=== PATIENT | male | born 1990 | race Caucasian/White ===

== ENCOUNTER 2022-06-15 11:15 | Emergency (ER) | payer OTHER, SELFPAY ==
[2022-06-15 11:32] VITALS: BP 168/79; PULSE 87; RESP 15; TEMP 36.8; O2SAT 99; BMI 26.6
--- NOTE | 2022-06-15 11:35 | DI.RAD.S_ITS ---
PROCEDURE: XR HIP W PEL IF DONE LT 2V INDICATIONS: lower back and left hip pain TECHNIQUE: Two views of each hip well as AP view of the pelvis was obtained COMPARISON: None. FINDINGS: Bones: No fractures or dislocations. No suspicious bony lesions. The visualized pelvic ring appears intact. Soft tissues: No suspicious soft tissue calcifications or masses. IMPRESSION: Unremarkable bilateral hip radiographs Approved by: Bhaskar Torres M.D. on 06/15/2022 at 11:36
--- NOTE | 2022-06-15 13:04 | DI.RAD.S_ITS ---
PROCEDURE: XR LUMBAR SPINE 2-3V INDICATIONS: lumbar radiulopathy, eval L2-L4 TECHNIQUE: 3 views of the lumbar spine were acquired. COMPARISON: None. FINDINGS: Bones: There is curvature of the lumbar spine, according to technologist note the patient is leaning to the left and was unable to straighten due to pain. 5 [id number] vertebrae are present. There is normal bony alignment. No vertebral body compression fractures. No suspicious bony lesions. Soft tissues: Overlying bowel gas pattern is normal. No suspicious soft tissue calcifications. IMPRESSION: Curvature of the spine to the left due to patient positioning. No acute abnormality identified. Dictated by: Miguel Jeter M.D. on 06/15/2022 at 14:15 Approved by: Miguel Jeter M.D. on 06/15/2022 at 14:18
--- NOTE | 2022-06-15 13:06 | ED.LOWEXIN ---
HPI - Extremity Injury (Lower) <SHASHA Garner - Last Filed: 06/15/22 16:05> General Chief Complaint: Extremity Injury, Lower Stated Complaint: Back injury 6 wks ago getting worse- new leg pain Time Seen by Provider: 06/15/22 13:04 Source: patient Mode of arrival: Ambulatory History of Present Illness HPI Narrative: This is a 32-year-old male presents to the emergency department complaining of anterior thigh pain which has been getting worse since he injured his low back 6 weeks ago lifting a heavy weight from a full squat position he complains of lumbar pain which has been radiating to his anterior left thigh. Denies any radiation of his lower leg, states that his hip feels slightly weak and this pain has been getting worse over the last few days. He has been taking Flexeril, Tylenol, ibuprofen and lidocaine patches and state that he is not getting better yet. He states that the Flexeril makes him so tired that take that medication during the day. Related Data Previous Rx's Medication Instructions Recorded ketorolac 10 mg tablet 10 mg PO TID PRN pain 5 days #20 06/15/22 tabs methocarbamol 500 mg tablet 250 - 500 mg PO Q8H PRN muscle 06/15/22 spasm #20 tabs prednisone 20 mg tablet 40 mg PO DAILY #10 tabs 06/15/22 Allergies Allergy/AdvReac Type Severity Reaction Status Date / Time Sulfa (Sulfonamide Allergy Severe ITCHING Verified 06/15/22 14:09 Antibiotics) [SULFA (SULFONAMIDE ANTIBIOTICS)] Review of Systems <SHASHA Garner - Last Filed: 06/15/22 16:05> Review of Systems Narrative: Review of systems is negative for acute abnormalities unless otherwise noted in HPI Patient History <SHASHA Garner - Last Filed: 06/15/22 16:05> Social History Smoking Status: Unknown if ever smoked Smoking Status: Unknown if ever smoked alcohol intake frequency: 0-2 drinks per day Substance Use Type: does not use Exam <SHASHA Garner - Last Filed: 06/15/22 16:05> Narrative Exam Narrative: Reviewed vitals signs and nursing notes. General: cooperative, comfortable, in no acute distress, well groomed, ambulatory with steady gait HEENT: symmetrical facial expressions, moist mucous membranes Cardiovascular: regular rate and rhythm, no peripheral edema, warm extremities Respiratory: normal effort, able to speak in complete sentences, without wheezing, stridor, or abnormal breath sounds. No retractions or tachypnea. GI: abdomen soft, nontender to palpation, nondistended, without masses, rebound tenderness or exquisite tenderness with exam. MSK: moves all extremities, neurovascularly intact, no weakness, normal tone, no point tenderness along lumbar spine, Skin: brisk capillary refill, without pallor or erythema Neuro: normal speech and cognition, A&O x3, ambulatory, clear speech Psych: mental status is grossly normal, congruent mood, normal affect, pleasant and cooperative Initial Vital Signs Initial Vital Signs: Vital Signs Temperature 98.3 F 06/15/22 11:32 Pulse Rate 87 06/15/22 11:32 Respiratory Rate 15 06/15/22 11:32 Blood Pressure 168/79 H 06/15/22 11:32 Pulse Oximetry 99 06/15/22 11:32 Oxygen Delivery Method 06/15/22 11:32 <Jarad Stewart MD - Last Filed: 06/15/22 16:57> Initial Vital Signs Initial Vital Signs: Vital Signs Temperature 98.3 F 06/15/22 11:32 Pulse Rate 87 06/15/22 11:32 Respiratory Rate 15 06/15/22 11:32 Blood Pressure 168/79 H 06/15/22 11:32 Pulse Oximetry 99 06/15/22 11:32 Oxygen Delivery Method 06/15/22 11:32 Course <SHASHA Garner - Last Filed: 06/15/22 16:05> Orders Ordered: ED Orders 06/15/22 11:35 XR hip w pel if done LT 2V Stat 06/15/22 13:04 XR lumbar spine 2-3V Stat Discontinued Medications Acetaminophen (Acetaminophen 325 Mg Tablet) 975 mg PO NOW ONE Stop: 06/15/22 13:05 Last Admin: 06/15/22 13:17 Dose: 975 mg Documented By: BT Ketorolac Tromethamine (Ketorolac 30 Mg/Ml Vial) 15 mg IM NOW ONE Stop: 06/15/22 13:05 Last Admin: 06/15/22 13:17 Dose: 15 mg Documented By: BT Methocarbamol (Methocarbamol 500 Mg Tablet) 500 mg PO NOW ONE Stop: 06/15/22 13:06 Last Admin: 06/15/22 13:17 Dose: 500 mg Documented By: BT Pantoprazole Sodium (Pantoprazole Dr 20 Mg Tablet) 20 mg PO NOW ONE Stop: 06/15/22 13:05 Last Admin: 06/15/22 13:17 Dose: 20 mg Documented By: BT Prednisone (Prednisone 20 Mg Tablet) 60 mg PO NOW ONE Stop: 06/15/22 13:05 Last Admin: 06/15/22 13:16 Dose: 60 mg Documented By: BT Vital Signs Vital signs: Vital Signs - 8 hr 06/15/22 11:32 06/15/22 14:10 Temperature 98.3 F Pulse Rate 87 69 Respiratory Rate 15 20 Blood Pressure 168/79 H 117/74 Pulse Oximetry 99 98 Oxygen Delivery Method Room Air Room Air <Jarad Stewart MD - Last Filed: 06/15/22 16:57> Orders Ordered: ED Orders 06/15/22 11:35 XR hip w pel if done LT 2V Stat 06/15/22 13:04 XR lumbar spine 2-3V Stat Discontinued Medications Acetaminophen (Acetaminophen 325 Mg Tablet) 975 mg PO NOW ONE Stop: 06/15/22 13:05 Last Admin: 06/15/22 13:17 Dose: 975 mg Documented By: BT Ketorolac Tromethamine (Ketorolac 30 Mg/Ml Vial) 15 mg IM NOW ONE Stop: 06/15/22 13:05 Last Admin: 06/15/22 13:17 Dose: 15 mg Documented By: BT Methocarbamol (Methocarbamol 500 Mg Tablet) 500 mg PO NOW ONE Stop: 06/15/22 13:06 Last Admin: 06/15/22 13:17 Dose: 500 mg Documented By: BT Pantoprazole Sodium (Pantoprazole Dr 20 Mg Tablet) 20 mg PO NOW ONE Stop: 06/15/22 13:05 Last Admin: 06/15/22 13:17 Dose: 20 mg Documented By: BT Prednisone (Prednisone 20 Mg Tablet) 60 mg PO NOW ONE Stop: 06/15/22 13:05 Last Admin: 06/15/22 13:16 Dose: 60 mg Documented By: BT Vital Signs Vital signs: Vital Signs - 8 hr 06/15/22 11:32 06/15/22 14:10 Temperature 98.3 F Pulse Rate 87 69 Respiratory Rate 15 20 Blood Pressure 168/79 H 117/74 Pulse Oximetry 99 98 Oxygen Delivery Method Room Air Room Air MDM - Extremity Injury (Lower) <Consuelo Leiva [facility] - Last Filed: 06/15/22 16:05> Imaging Data Extremity x-ray #1: Radiologist's Impression: PROCEDURE:? XR HIP W PEL IF DONE LT 2V ? INDICATIONS:? lower back and left hip pain ? TECHNIQUE:? Two views of each hip well as AP view of the pelvis was obtained ? COMPARISON:? None. ? FINDINGS:? ? Bones:? No fractures or dislocations.? No suspicious bony lesions.? The visualized pelvic ring appears intact.? ? Soft tissues:? No suspicious soft tissue calcifications or masses.? ? IMPRESSION:? Unremarkable bilateral hip radiographs ? ? Approved by: Bhaskar Torres M.D. on 06/15/2022 at 11:36? Extremity x-ray #2: Radiologist's Impression: PROCEDURE:? XR LUMBAR SPINE 2-3V ? INDICATIONS:? lumbar radiulopathy, eval L2-L4 ? TECHNIQUE:? 3 views of the lumbar spine were acquired.? ? COMPARISON:? None. ? FINDINGS:? ? Bones:? There is curvature of the lumbar spine, according to technologist note the patient is leaning to the left and was unable to straighten due to pain.? 5 [id number] vertebrae are present.? There is normal bony alignment.? No vertebral body compression fractures.? No suspicious bony lesions.? ? Soft tissues:? Overlying bowel gas pattern is normal.? No suspicious soft tissue calcifications.? ? ? IMPRESSION:? Curvature of the spine to the left due to patient positioning.? No acute abnormality identified.? ? ? Dictated by: Miguel Jeter M.D. on 06/15/2022 at 14:15 ? ? Approved by: Miguel Jeter M.D. on 06/15/2022 at 14:18 ? [facility] Narrative Medical decision making narrative: This is a 32-year-old male who presents to the emergency department complaining anterior left leg pain which has been getting worse over the last 6 weeks since his back injury that occurred when he was lifting a heavy weight from a full squat position. When he arrived today nursing placed orders and put a x-ray in, this was negative for any acute abnormalities. Patient does not have any range of motion deficit or axial load tenderness to bilateral hips. He complains of sharp radiation of his lumbar pain to his anterior left thigh, lumbar x-ray was obtained with three views with close evaluation of L2-L4 and x-ray does not show any acute abnormality. No vertebral body compression fractures or suspicious bony lesions. Patient was encouraged to follow-up with [facility] and ask for referral to physical therapy and Orthopedics, he was given 2 phone numbers for locations to get his referrals to. He was treated today with ketorolac IM, methocarbamol for muscle spasm, and prednisone for inflammation and lumbar radiculopathy. Given history and exam, suspect likely musculoskeletal etiology, they are nontoxic appearing with no overt risk factors for epidural hematoma or abscess. No overt evidence of critical cord compression and has a nonfocal near exam. Neurovascularly intact distally, no evidence of infection, peritoneal signs, hypertensive crisis, or abdominal pain with low suspicion for AAA. No weakness, incontinence, neurovascular or sensation changes, no concerning findings for caudal equina syndrome, lumbar fracture, without paresthesia, neuropathic pain, meningeal signs and fever. This could be a herniated disk, paraspinal or other muscle strain, ligamental injury, arthritic, nephrolithiasis/pyelonephritis, epidural abscess, chronic pain, and other diagnosis? considered less likely. Patient is appropriate and amenable to discharge home. Vital signs are stable on repeat examination is unremarkable. Patient has been informed of results. Patient has been given strict return to ER precautions for any new or worsening symptoms. Patient understands to follow up closely with outpatient providers as instructed. Patient understands plan and agrees to discharge home. All questions and concerns answered at this time. Discharge Plan Departure Patient Disposition: Home Clinical Impression: Lumbar back pain with radiculopathy affecting left lower extremity Instructions: DI for Herniated Disc, DI for Back Pain With Sciatica Activity Restrictions/Additional Instructions: *You have been diagnosed with lumbar radiculopathy also called sciatica. Injuries to the L2-L3 lumbar vertebrae can affect the disc whether it herniates, slips forward or back or if there is nearby inflammation it puts pressure on nerve root sending a message to the anterior thigh. In your case cyst on the left side, anti-inflammatories are typically 1st line, please use the Toradol instead of ibuprofen, take it with food and water every 8 hours, you can take Tylenol 975 mg every 6 hours as long as you take less than 4 g in 24 hours. Take the methocarbamol half to 1 tab as needed for muscle spasms, a steroid to help calm down the inflammation but you need urgent follow-up with a spine doctor if you have weakness in your lower extremity, urinary incontinence or retention, persistent numbness or tingling etcetera. I hope that you can follow-up with the for urgent referral to an appropriate provider, please ask for this referral from them, I hope you find what you are looking for, if you need to use your 's insurance later and would like to follow-up, Dr. Horan with [facility] is a spine surgeon and Dr. Brizuela is in [place]. Please ask your provider to review the x-rays that were taken here at [facility] today. *What to do: *Please continue to take your regular medications as directed. [x ] New medication prescriptions sent to your pharmacy: [[facility] ] [ ] New medication written as a paper prescription [ ] No new medications given *Please follow up with your primary care provider in 2-3 days, call for an appointment. Let them know you were seen in the Emergency Department and that we asked that you be seen for follow-up. We will electronically transmit a record of today's note if your PCP is in our system *If you do not have a primary care provider please contact [phone] to establish care with one of the [facility] primary care providers. *Return to Emergency Department if you should have any new, worsening, or concerning symptoms, such as [fever greater than 101F, chills, worsening pain, persistent vomiting or other bothersome symptoms]. Prescriptions: New methocarbamol 500 mg tablet 250 - 500 mg PO Q8H PRN (Reason: muscle spasm) Qty: 20 0RF prednisone 20 mg tablet 40 mg PO DAILY Qty: 10 0RF ketorolac 10 mg tablet 10 mg PO TID PRN (Reason: pain) 5 Days Qty: 20 0RF Referrals: [facility] [Provider Group] (Dr. Caba is the spine surgeon associated with this Ortho clinic) Angelina Uriostegui MD [Family Provider] - Jarad Brizuela MD [Physician] - Provider,Monreo ARMSTRNOG [Primary Care Provider] - Visit Report Forms: Patient Portal/API <Jarad Stewart MD - Last Filed: 06/15/22 16:57> Cosign ED Attending Cosignature Attestation: I was immediately available in the department for consultation. ?This documentation has been reviewed and I agree with assessment and plan. Supervised by Jarad Stewart MD
[2022-06-15] MEDS: predniSONE 20 MG TABLET 60 MG PO (13:16)
[2022-06-15] MEDS: ACETAMINOPHEN 325 MG TABLET 975 MG PO (13:17)
[2022-06-15] MEDS: KETOROLAC 30 MG/ML VIAL 15 MG IM (13:17)
[2022-06-15] MEDS: methocarbamoL 500 MG TABLET PO (13:17)
[2022-06-15] MEDS: PANTOPRAZOLE DR 20 MG TABLET PO (13:17)
[2022-06-15 14:10] VITALS: BP 117/74; PULSE 69; RESP 20; O2SAT 98
== END 2022-06-15 14:10 | disposition home or self-care (01) ==
PROVIDERS: Emergency Provider Nurse Practitioner Critical Care Medicine; Family Provider Family Medicine
DX: M54.16 Radiculopathy, lumbar region (principal); M79.605 Pain in left leg
CPT/HCPCS: 72100; 73502; 96372; 99283; 99284; J1885

== ENCOUNTER → 2022-09-07 11:55 | Outpatient (CLI) | payer OTHER, SELFPAY ==
[2022-09-07 13:32] LABS: COVID19 -Nasal RAPID Negative (Negative)
== END ==
PROVIDERS: Family Provider Family Medicine; Referring Provider Internal Medicine; Visit Provider Internal Medicine
DX: Z20.822 Contact with and (suspected) exposure to COVID-19 (principal)
CPT/HCPCS: 87635; C9803

== ENCOUNTER → 2022-09-08 08:25 | Outpatient (CLI) | payer OTHER, SELFPAY ==
--- NOTE | 2022-09-20 07:52 | PM.PFT.1 ---
Pulmonary Function Test Referral & Results Date Patient Seen: 09/08/22 Requesting provider: Liborio Lutz Results: The spirometry demonstrates an FVC of 8.27 L which is 120% of predicted. The FEV1 was measured at 6.10 L which is 110% of predicted. The FEV1/FVC ratio was 74 which is 89% of predicted. Following the administration of bronchodilator there was a 17% improvement in FEF 25-75%. Interpretation: This study, which is limited to forced spirometry alone, demonstrates normal spirometry.
== END ==
PROVIDERS: Family Provider Family Medicine; Referring Provider Chiropractor; Visit Provider Chiropractor
DX: R06.02 Shortness of breath (principal); J98.8 Other specified respiratory disorders
CPT/HCPCS: 94060